=== PATIENT | male | born 1970 | race Caucasian/White ===

== ENCOUNTER 2020-05-02 10:12 | Emergency (ER) | payer SELFPAY ==
--- NOTE | 2020-05-02 10:35 | EDM.PDOC ---
ED HPI GENERAL MEDICAL PROBLEM - General Chief Complaint: Diabetic Complaint Stated Complaint: DIABETIC PROBLEMS Time Seen by Provider: 05/02/20 10:30 Source of Information: Reports: Patient History Limitations: Reports: No Limitations - History of Present Illness INITIAL COMMENTS - FREE TEXT/NARRATIVE: 49-year-old male presents to the ED with complaints of fatigue sli ghtly congested paroxysmal cough. Generalized weakness. Mild lightheadedness when standing. Patient reports he is not been feeling well for the last 3 days with excessive fatigue and has been sleeping a good deal. Markedly decreased appetite. He only had a bowl of soup yesterday. Nothing so far today. Patient is a type II diabetic controlled with metformin twice daily and he is not all that compliant with it. He did start it again this morning. He also has regular insulin that he uses intermittently like once a week for elevated blood sugars per sliding scale. He is not on any basal insulin. Diagnosed with type 2 diabetes 3 years ago. Blood sugar at home was 196. Blood sugar at the bedside in the ED is 189. He has not appreciated a fever at home. Mild nonproductive cough.. Onset: Gradual Onset Date: 04/29/20 Duration: Day(s): Location: Reports: Generalized (MRI sense of weakness with loss of appetite increased fatigue and marked decrease in appetite.) Quality: Reports: Other (Generalized weakness) Severity: Moderate (with loss of appetite for the last 3 days.) Improves with: Reports: None Worsens with: Reports: Other (Make him feel more) Context: Denies: Activity, Exercise ( fatigued and short of breath.), Lifting, Sick Contact, Trauma, Other Associated Symptoms: Reports: Cough, Loss of Appetite, Malaise, Shortness of Breath, Weakness. 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: Other (see below) (None.) - Related Data Allergies Allergy/AdvReac Type Severity Reaction Status Date / Time No Known Allergies Allergy Verified 12/11/16 10:08 CDT Home Meds: Home Meds Losartan/Hydrochlorothiazide [Losartan-HCTZ 100-12.5 MG] 5 mg PO DAILY 09/12/14 [History] Insulin Regular, Human [NovoLIN R] 0 unit SQ WITHMEALSANDBED #1 vial 05/02/20 [Rx] Ondansetron [Zofran] 4 mg BUCCAL Q6H PRN #10 tab 05/02/20 [Rx] dexAMETHasone [Dexamethasone] 8 mg PO BID #12 tablet 05/02/20 [Rx] Past Medical History Cardiovascular History: Reports: Hypertension Endocrine/Metabolic History: Reports: Diabetes, Type II (Controlled with diet and twice daily. He does not know the dosage of his metformin. He also has regular insulin that he takes once in a while such as once a week for elevated blood sugar per sliding scale. By history he does not take his metformin daily either.) Social & Family History - Family History Family Medical History: Noncontributory - Tobacco Core Measures Tobacco Use/Smoking Within Last 30 Days: Yes Smoking Frequency Within Last 30 Days: Reports: Five or More Cigarettes Per Day (Patient reports on average about 5 cigarettes a day.) Smokeless Tobacco Use in Last 30 Days: No - Caffeine Use Caffeine Use: Reports: None ED ROS GENERAL - Review of Systems Review Of Systems: See Below Constitutional: Reports: Malaise, Weakness, Fatigue, Decreased Appetite. Denies: Fever, Chills HEENT: Reports: No Symptoms Respiratory: Reports: Shortness of Breath, Cough. Denies: Wheezing, Pleuritic Chest Pain, Sputum, Hemoptysis (Intermittent nonproductive and mild.) Cardiovascular: Reports: Blood Pressure Problem, Dyspnea on Exertion, Lightheadedness. Denies: Chest Pain, Claudication, Edema (Standing.), Orthopnea (Patient is on losartan/hydrochlorothiazide once daily.), Palpitations (Short of breath on exertion.) Endocrine: Reports: Fatigue GI/Abdominal: Reports: Decreased Appetite. Denies: Diarrhea, Difficulty Swallowing, Distension, Flatus, Hematemesis, Hematochezia, Melena, Mucous in Stool, Nausea, Stool Incontinence, Vomiting, Other : Reports: Frequency, Other (He states urinary frequency is not bad at this time.) Musculoskeletal: Reports: Other (Some swelling and bruising right anterior tib- fib from a trip and fall a week ago.) Skin: Reports: Bruising Neurological: Reports: Dizziness, Difficulty Walking, Weakness. Denies: Confusion, Headache, Numbness (Standing.), Pre-Existing Deficit, Syncope, Tingling, Trouble Speaking (Due to weakness.), Change in Speech, Gait Distur bance Psychiatric: Reports: No Symptoms Hematologic/Lymphatic: Reports: No Symptoms Immunologic: Reports: No Symptoms ED EXAM GENERAL NO PERIP PULSE - Physical Exam Exam: See Below Exam Limited By: No Limitations General Appearance: Alert, WD/WN, No Apparent Distress, Other (Temperature is 35.6. He feels cool to touch. Heart rate was 75 and sinus with respect rate of 20 and O2 sats of 98% on room air BP 153/89.) Eye Exam: Bilateral Eye: Normal Inspection, PERRL Throat/Mouth: Normal Inspection, Normal Lips, Normal Teeth, Normal Oropharynx Head: Atraumatic, Normocephalic Neck: Normal Inspection, Supple, Non-Tender, Full Range of Motion. No: Carotid Bruit, Lymphadenopathy (L), Lymphadenopathy (R) Respiratory/Chest: No Accessory Muscle Use, Respiratory Distress (Mild tachypnea), Decreased Breath Sounds (Mildly decreased breath sounds to both posterior lung cagle I believe due to the patient's size.), Wheezing ( at rest. Wheezing both upper lobes of lungs.). No: Lungs Clear, Normal Breath Sounds, Chest Non-Tender Cardiovascular: Normal Peripheral Pulses, Regular Rate, Rhythm, No Gallop, No Murmur, No Rub, Other (Patient has slight swelling of his right leg but he fell and injured the anterior tib-fib a week ago.) GI/Abdominal: Normal Bowel Sounds, Soft, Non-Tender, No Organomegaly, No Mass, Pelvis Stable, Other (No surgical scars. Mildly obese.) Back Exam: Normal Inspection, Full Range of Motion. No: CVA Tenderness (L), CVA Tenderness (R) Extremities: Normal Inspection, Normal Range of Motion, Other (Patient has a tenderness and marked bruising of his anterior tib-fib from a fall a week ago when he tripped over a trailer hitch. The leg is mildly edematous.) Neurological: Alert, Oriented, CN II-XII Intact, Normal Cognition Psychiatric: Normal Affect, Normal Mood, Anxious (Minimally anxious.) Skin Exam: Warm, Dry, Intact, Normal Color, Ecchymosis (Right anterior tib-fib after trauma a week ago when he tripped over a trailer hitch.) Course - Vital Signs Last Recorded V/S: Last Vital Signs Temp 35.6 C L 05/02/20 10:20 Pulse 75 05/02/20 10:20 Resp 20 05/02/20 10:20 BP 153/89 H 05/02/20 10:20 Pulse Ox 98 05/02/20 10:20 - Orders/Labs/Meds Orders: Active Orders 24 hr Category Date Time Status Chest 1V Frontal [CR] Stat Exams 05/02/20 10:36 Taken Sodium Chloride 0.9% [Normal Saline] 1,000 ml Med 05/02/20 10:45 Active IV ASDIRECTED Medication Orders Sodium Chloride (Normal Saline) 1,000 mls @ 999 mls/hr IV ASDIRECTED SUSIE Last Admin: 05/02/20 12:06 Dose: 999 mls/hr Documented by: HEIDI Labs: Laboratory Tests 05/02/20 05/02/20 05/02/20 Range/Units 10:28 10:30 10:30 WBC 4.12 L (4.23-9.07) K/mm3 RBC 4.92 (4.63-6.08) M/mm3 Hgb 14.6 (13.7-17.5) gm/dl Hct 43.5 (40.1-51.0) % MCV 88.4 (79.0-92.2) fl MCH 29.7 (25.7-32.2) pg MCHC 33.6 (32.2-35.5) g/dl RDW Std Deviation 41.6 (35.1-43.9) fL Plt Count 189 (163-337) K/mm3 MPV 10.8 (9.4-12.3) fl Neut % (Auto) 61.9 (34.0-67.9) % Lymph % (Auto) 22.8 (21.8-53.1) % Stearns % (Auto) 14.1 H (5.3-12.2) % Eos % (Auto) 0.7 L (0.8-7.0) Baso % (Auto) 0.0 L (0.1-1.2) % Neut # (Auto) 2.55 (1.78-5.38) K/mm3 Lymph # (Auto) 0.94 L (1.32-3.57) K/mm3 Stearns # (Auto) 0.58 (0.30-0.82) K/mm3 Eos # (Auto) 0.03 L (0.04-0.54) K/mm3 Baso # (Auto) 0.00 L (0.01-0.08) K/mm3 D-Dimer, Quantitative (0.19-0.50) mg/L Sodium 137 (136-145) mEq/L Potassium 3.4 L (3.5-5.1) mEq/L Chloride 98 (98-107) mEq/L Carbon Dioxide 26 (21-32) mEq/L Anion Gap 16.4 H (5-15) BUN 9 (7-18) mg/dL Creatinine 0.9 (0.7-1.3) mg/dL Est Cr Clr Drug Dosing 96.06 mL/min Estimated GFR (MDRD) > 60 (>60) mL/min BUN/Creatinine Ratio 10.0 L (14-18) Glucose 199 H (74-106) mg/dL POC Glucose 189 H (70-105) mg/dL Hemoglobin A1c (4.50-6.20) % Calcium 8.8 (8.5-10.1) mg/dL Magnesium 1.9 (1.8-2.4) mg/dl Ferritin (26-388) ng/ml Total Bilirubin 0.5 (0.2-1.0) mg/dL AST 77 H (15-37) U/L ALT 81 H (16-63) U/L Alkaline Phosphatase 102 (46-116) U/L Lactate Dehydrogenase (85-227) U/L C-Reactive Protein 4.7 H* (<1.0) mg/dL NT-Pro-B Natriuret Pep (0-125) pg/mL Total Protein 7.8 (6.4-8.2) g/dl Albumin 3.2 L (3.4-5.0) g/dl Globulin 4.6 gm/dL Albumin/Globulin Ratio 0.7 L (1-2) SARS-CoV-2 RNA (NABIL) (NEGATIVE) 05/02/20 05/02/20 05/02/20 Range/Units 10:30 10:30 12:24 WBC (4.23-9.07) K/mm3 RBC (4.63-6.08) M/mm3 Hgb (13.7-17.5) gm/dl Hct (40.1-51.0) % MCV (79.0-92.2) fl MCH (25.7-32.2) pg MCHC (32.2-35.5) g/dl RDW Std Deviation (35.1-43.9) fL Plt Count (163-337) K/mm3 MPV (9.4-12.3) fl Neut % (Auto) (34.0-67.9) % Lymph % (Auto) (21.8-53.1) % Stearns % (Auto) (5.3-12.2) % Eos % (Auto) (0.8-7.0) Baso % (Auto) (0.1-1.2) % Neut # (Auto) (1.78-5.38) K/mm3 Lymph # (Auto) (1.32-3.57) K/mm3 Stearns # (Auto) (0.30-0.82) K/mm3 Eos # (Auto) (0.04-0.54) K/mm3 Baso # (Auto) (0.01-0.08) K/mm3 D-Dimer, Quantitative (0.19-0.50) mg/L Sodium (136-145) mEq/L Potassium (3.5-5.1) mEq/L Chloride (98-107) mEq/L Carbon Dioxide (21-32) mEq/L Anion Gap (5-15) BUN (7-18) mg/dL Creatinine (0.7-1.3) mg/dL Est Cr Clr Drug Dosing mL/min Estimated GFR (MDRD) (>60) mL/min BUN/Creatinine Ratio (14-18) Glucose (74-106) mg/dL POC Glucose (70-105) mg/dL Hemoglobin A1c 9.10 H (4.50-6.20) % Calcium (8.5-10.1) mg/dL Magnesium (1.8-2.4) mg/dl Ferritin (26-388) ng/ml Total Bilirubin (0.2-1.0) mg/dL AST (15-37) U/L ALT (16-63) U/L Alkaline Phosphatase (46-116) U/L Lactate Dehydrogenase (85-227) U/L C-Reactive Protein (<1.0) mg/dL NT-Pro-B Natriuret Pep 76 (0-125) pg/mL Total Protein (6.4-8.2) g/dl Albumin (3.4-5.0) g/dl Globulin gm/dL Albumin/Globulin Ratio (1-2) SARS-CoV-2 RNA (NABIL) Positive H (NEGATIVE) 05/02/20 05/02/20 05/02/20 Range/Units 12:35 12:35 12:35 WBC (4.23-9.07) K/mm3 RBC (4.63-6.08) M/mm3 Hgb (13.7-17.5) gm/dl Hct (40.1-51.0) % MCV (79.0-92.2) fl MCH (25.7-32.2) pg MCHC (32.2-35.5) g/dl RDW Std Deviation (35.1-43.9) fL Plt Count (163-337) K/mm3 MPV (9.4-12.3) fl Neut % (Auto) (34.0-67.9) % Lymph % (Auto) (21.8-53.1) % Stearns % (Auto) (5.3-12.2) % Eos % (Auto) (0.8-7.0) Baso % (Auto) (0.1-1.2) % Neut # (Auto) (1.78-5.38) K/mm3 Lymph # (Auto) (1.32-3.57) K/mm3 Stearns # (Auto) (0.30-0.82) K/mm3 Eos # (Auto) (0.04-0.54) K/mm3 Baso # (Auto) (0.01-0.08) K/mm3 D-Dimer, Quantitative 0.26 (0.19-0.50) mg/L Sodium (136-145) mEq/L Potassium (3.5-5.1) mEq/L Chloride (98-107) mEq/L Carbon Dioxide (21-32) mEq/L Anion Gap (5-15) BUN (7-18) mg/dL Creatinine (0.7-1.3) mg/dL Est Cr Clr Drug Dosing mL/min Estimated GFR (MDRD) (>60) mL/min BUN/Creatinine Ratio (14-18) Glucose (74-106) mg/dL POC Glucose (70-105) mg/dL Hemoglobin A1c (4.50-6.20) % Calcium (8.5-10.1) mg/dL Magnesium (1.8-2.4) mg/dl Ferritin 455 H (26-388) ng/ml Total Bilirubin (0.2-1.0) mg/dL AST (15-37) U/L ALT (16-63) U/L Alkaline Phosphatase (46-116) U/L Lactate Dehydrogenase 216 (85-227) U/L C-Reactive Protein (<1.0) mg/dL NT-Pro-B Natriuret Pep (0-125) pg/mL Total Protein (6.4-8.2) g/dl Albumin (3.4-5.0) g/dl Globulin gm/dL Albumin/Globulin Ratio (1-2) SARS-CoV-2 RNA (NABIL) (NEGATIVE) Meds: Medications Generic Name Dose Route Start Last Admin Trade Name Freq PRN Reason Stop Dose Admin Sodium Chloride 1,000 mls @ 999 mls/hr 05/02/20 10:45 05/02/20 12:06 Normal Saline IV 999 mls/hr ASDIRECTED SUSIE Administration Discontinued Medications Generic Name Dose Route Start Last Admin Trade Name Freq PRN Reason Stop Dose Admin Ondansetron HCl 4 mg 05/02/20 14:08 Zofran IVPUSH 05/02/20 14:09 ONETIME ONE - Radiology Interpretation Free Text/Narrative:: 49-year-old male presents the ED with some concerns about his elevated blood sugar at 196 at home this morning. He has taken his metformin today sounds like he is not all that compliant with the metformin dose. He uses insulin reportedly about once a week for an elevated blood sugar per sliding scale. Diagnosed with type 2 diabetes 3 years ago. He reports generally feeling weak, tired and decreased appetite. Been sleeping excessively the last 2 to 3 days. He only took in a bowl of chicken noodle soup yesterday. Has not yet eaten today. He feels lightheaded and dizzy upon standing. Concerned that his blood sugars were too high. He is afebrile. He reports a mild nonproductive cough. Clinically he is not showing any significant symptoms to suggest COVID-19 illness. Plan IV normal saline at open. Routine labs and a chest x-ray will be obtained. Bedside glucose was 189 in the ED. - Re-Assessments/Exams Free Text/Narrative Re-Assessment/Exam: 05/02/20 12:14 : Chest x-ray done portably reveals moderate cardiomegaly with diffuse vascular congestion pattern. There is also a circular infiltrate in the right lower lobe of unclear etiology.White blood cell count is low at 4.12. With 62% neutrophils. Hemoglobin 14.6 with hematocrit of 43.5. Platelet count 189,000. Sodium 137 with a potassium of 3.4. Chloride 98 with a bicarb of 26. Anion gap slightly elevated at 16.4. BUN is 9 with a creatinine of 0.9. GFR is greater than 60. Glucose 199 in the lab. Hemoglobin A1c is elevated at 9.10 indicating very poor control of his diabetes. Calcium is 8.8 with a magnesium of 1.9. Bilirubin is 0.5 AST slightly elevated at 77 and ALT mildly elevated at 81. Alk phos stays normal at 102. C-reactive protein is elevated at 4.7. BNP is 76. Total protein 7.8 albumin fraction slightly low at 3.2. Due to changes appreciated on chest x-ray is at a early viral pneumonia and a normal BNP 8 COVID-19 test will be done as well as serum ferritin, serum LDH, serum d-dimer. 05/02/20 12:32: Advised of the need for COVID-19 screen due to suggestion of infection on chest x-ray and negative BNP in spite of cardiomegaly with diffuse vascular congestion appearance on chest x-ray. The lab will have to redraw him apparently as he has lab draw was hemolyzed. 05/02/20 13:17 D-dimer returned at 0.26. COVID-19 screen came back now and is positive. Sats are 97 to 98%. He is afebrile. I suspect therefore he is in the early stages of COVID-19 illness. Will likely benefit from dexamethasone IV now and oral dexamethasone although this will aggravate his blood sugars and he will likely require insulin over the next few days while on the dexamethasone. 05/02/20 14:02 Ferritin has returned elevated at 455 and LDH is normal at 216. On firm discussion with the patient he indicates that he is probably has not felt well since April 22. He did have the chills on Friday, April 28. I believe therefore he is well into his illness with COVID-19 probably day 7- 10. He is currently living in a hotel room and works for [employer] ([employer] 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 Therefore it is impossible to find the source of his COVID-19 illness. He will self quarantine in the hotel for the next 7 days. Note will be given to excuse him from the workplace for the next 7 days. He has not gone to work since Friday the due to fatigue and illness. He states however last week he could not wait to get home from work because of the fatigue and he would go straight to bed soon as he got home. Patient wants to eat but is feeling nauseated. I am going to give him Zofran 4 mg IV now and first dose of dexamethasone 6 mg IV. After this he will be started on oral dexamethasone 8 mg twice daily for 3 days. Currently his 02 sats are satisfactory. Steroids are going to aggravate his type 2 diabetes. He does have Lantus insulin and has been using between 15 and 30 units a day but he has not been using it much for the last few weeks because he has had no appetite. Advised him to return to Lantus 15 units a day and I am going to write a prescription for regular insulin and a sliding scale to use as his blood sugars are likely going to spike from the dexamethasone. At this time no other treatment is indicated he will return if he becomes more short of breath or worse. I will discharge him on Zofran 4 mg under the tongue every 4-6 hours necessary for nausea relief as well x12 tablets. Departure - Departure Time of Disposition: 14:16 Disposition: Home, Self-Care 01 Condition: Fair Clinical Impression: COVID-19 determined by clinical diagnostic criteria Type 2 diabetes mellitus Qualifiers: Diabetes mellitus residential insulin use: without intermodal truck driver use Diabetes mellitus complication status: without complication Qualified Code(s): E11.9 - Type 2 diabetes mellitus without complications - Discharge Information *PRESCRIPTION DRUG MONITORING PROGRAM REVIEWED*: Not Applicable *COPY OF PRESCRIPTION DRUG MONITORING REPORT IN PATIENT GERMAN: Not Applicable Prescriptions: dexAMETHasone [Dexamethasone] 8 mg PO BID #12 tablet Insulin Regular, Human [NovoLIN R] 0 unit SQ WITHMEALSANDBED #1 vial Ondansetron [Zofran] 4 mg BUCCAL Q6H PRN #10 tab PRN Reason: nausea or vomiting Instructions: Insulin Treatment for Diabetes Mellitus Referrals: PCP,Not In Area [Primary Care Provider] - Forms: ED Department Discharge, ED Return to Work/School Form Additional Instructions: Evaluation in the emergency room today in regards to overwhelming fatigue for the last week or more. No significant cough. Mildly elevated blood sugars in type 2 diabetes controlled almost without medication. Lab test revealed a blood sugar of 196 in the hospital. It was 189 at the bedside. Glycosylated protein is elevated at 9.1 I would suggest returning to your basal Lantus insulin of 15 units per day. You were treated with intravenous fluids while in the ED until labs were done. Chest x-ray was suspicious for a very mild infiltrate in upper and lower lobes on both sides suggestive of possible viral pneumonia. Other lab tests also revealed some degree of inflammation compatible with COVID-19 illness. Therefore COVID-19 screen was carried out and did return as positive. By history you have been sick for over 7 days. Most patients are the worst at day 8-10 of illness. Your oxygen levels are normal and you do not have a fever at this time. Therefore treatment is to be dexamethasone steroid use. First dose was given in the ED. You will need to take dexamethasone tablets 4 mg strength 2 tablets twice daily for the next 3 days to reduce inflammation caused by the COVID-19 illness. Unfortunately this will increase your blood sugars and you will definitely need to be on insulin during this timeframe and likely for 2 days after the dexamethasone prescription is done. I have written a prescription for regular insulin use which is used before each meal or for an elevated blood sugar and I have also written a sliding scale so you know how much of the insulin to use. Zofran tablet -4 mg can be taken under the tongue every 4-6 hours necessary for relief of nausea so that you can eat. You need to self quarantine for the next 7 days to make sure that you are not infective to any other people particularily in the workplace. Note given to excuse him from work for another week. Would need to return to the hospital if you develop increasing shortness of breath or high fever and severe chills. Act that you are not coughing and your oxygen levels are normal meaning that you are going to get through this illness with likely little problem. The king is being able to eat and drink normally. Sepsis Event Note (ED) - Evaluation Sepsis Screening Result: No Definite Risk - Focused Exam Vital Signs: Vital Signs Temp Pulse Resp BP Pulse Ox 05/02/20 10:20 35.6 C L 75 20 153/89 H 98 - My Orders Last 24 Hours: My Active Orders 05/02/20 10:36 Chest 1V Frontal [CR] Stat 05/02/20 10:45 Sodium Chloride 0.9% [Normal Saline] 1,000 ml IV ASDIRECTED - Assessment/Plan Last 24 Hours: My Active Orders 05/02/20 10:36 Chest 1V Frontal [CR] Stat 05/02/20 10:45 Sodium Chloride 0.9% [Normal Saline] 1,000 ml IV ASDIRECTED
[2020-05-02] MEDS ORDERED: Sodium Chloride 0.9% 1,000 ML IV SCH (10:45)
[2020-05-02 11:10] LABS: HEMOGLOBIN A1C 9.1 % (4.50-6.20)
[2020-05-02] MEDS ORDERED: Ondansetron 4 MG/2 ML SDV IVPUSH ONE (14:08)
[2020-05-02] MEDS ORDERED: Dexamethasone 4 MG/ML SDV IVPUSH ONE (14:14)
[2020-05-02 14:48] VITALS: BP 131/69; PULSE 62
--- NOTE | 2020-06-13 09:24 | CR ---
PROCEDURE INFORMATION: Exam: XR Chest, 1 View Exam date and time: 05/02/2020 10:46 AM Age: 49 years old Clinical indication: Cough and wheezing TECHNIQUE: Imaging protocol: XR of the chest Views: 1 view. COMPARISON: No relevant prior studies available. FINDINGS: Lungs: There are patchy nonspecific ground-glass opacities in both lungs. Pleural space: There are no pleural effusions present. Heart/Mediastinum: The heart is not enlarged. The pulmonary arteries are not enlarged. Bones/joints: The spine, ribs, and pectoral girdles are normal. IMPRESSION: Nonspecific patchy ground-glass opacities in the lungs. Thank you for allowing us to participate in the care of your patient. Dictated and Authenticated by: Dalton Gracia MD 06/12/2020 3:04 PM Central Time ([place] & [place]) [place]
== END 2020-05-02 14:55 | disposition home or self-care (01) ==
LOC: JD.ED 10:12
DX: U07.1 COVID-19 (principal); E11.9 Type 2 diabetes mellitus without complications; S80.11XA Contusion of right lower leg, initial encounter; I10 Essential (primary) hypertension; F17.210 Nicotine dependence, cigarettes, uncomplicated; E66.9 Obesity, unspecified; Z68.42 Body mass index [BMI] 45.0-49.9, adult; Z79.899 Other long term (current) drug therapy; Z79.4 Long term (current) use of insulin; W22.8XXA Striking against or struck by other objects, initial encounter
CPT/HCPCS: 36415; 71045; 80053; 82728; 82962; 83036; 83615; 83735; 83880; 85025; 85379; 86140; 87635; 96361; 96374; 96375; 99285; J1100; J2405; J7030; 99284; U0002